=== PATIENT | female | born 1995 | race Caucasian/White ===

== ENCOUNTER → 2024-12-31 10:42 | Outpatient (CLI) | payer OTHER, SELFPAY ==
--- NOTE | 2024-12-31 10:47 | DI.MRI.S_ITS ---
PROCEDURE: MR HEAD/BRAIN WO CON INDICATIONS: PSYCHOGENIC NONEPILEPTIC SEIZURE TECHNIQUE: Noncontrast axial T1 spin echo, axial T2 fast spin echo, sagittal and axial FLAIR, coronal T2 fast spin echo, axial gradient echo, axial diffusion and ADC through the brain. The patient developed seizures following intravenous contrast administration. Postcontrast imaging consequently could not be obtained. COMPARISON: None. FINDINGS: Image quality: Excellent. CSF Spaces: Basal cisterns are patent. No extra-axial fluid collections. Ventricles are normal in size and shape. Brain: No intracranial masses or hemorrhage. Arias/white matter interface is normal. Brainstem appears normal. Diffusion-weighted images demonstrate no acute infarct. No chronic ischemic insults. Normal intravascular flow voids are present. Skull and face: Calvarium has normal marrow signal. Orbits appear normal. Sinuses: Sinuses and mastoids are clear. IMPRESSION: Negative evaluation. Dictated by: Sue Fuentes M.D. on 12/31/2024 at 11:56 Approved by: Sue Fuentes M.D. on 12/31/2024 at 11:57
== END ==
LOC: MRI 10:46
PROVIDERS: PCP Family Medicine; Referring Provider Family Medicine; Visit Provider Family Medicine
DX: F44.5 Conversion disorder with seizures or convulsions (principal); R51.9 Headache, unspecified
CPT/HCPCS: 70551

== ENCOUNTER 2024-12-31 11:47 | Emergency (ER) | payer OTHER, SELFPAY ==
[2024-12-31] VITALS (95 sets, daily range): BP systolic 91–118; BP diastolic 51–76; PULSE 64–116; RESP 6–28; TEMP 36.8; O2SAT 95–100; BMI 49.1
[2024-12-31] MEDS: LORazepam 2 MG/ML INJ 0.5 MG IV ×2 (11:47→13:58)
[2024-12-31] MEDS: SODIUM CHLORIDE 0.9% 1,000 ML 1000 ML IV (11:49)
--- NOTE | 2024-12-31 11:49 | ED.SEIZURE ---
HPI - Seizure General Chief Complaint: Seizure Stated Complaint: Seizure in MRI Time Seen by Provider: 12/31/24 11:48 Source: patient, RN notes reviewed and old records reviewed Mode of arrival: other (from MRI) Limitations: no limitations History of Present Illness HPI Narrative: 29-year-old female history of seizure disorder on lorazepam PRN, duloxetine, Lamictal and Topamax read. Per mom patient's Lamictal was recently close to 75 mg. Mom states she does have a history of seizures and/or pseudoseizures does follow with Neurology in [place]. Patient was getting an outpatient MRI when had seizure-like activity. Mom states last episode was about a month ago. Was seen in the emergency department and [facility]. Initially mom stated no allergies to medications but patient awoke and told us allergic to gabapentin, Keppra, Tegretol, morphine and Augmentin. Patient did have what appears to be tonic-clonic seizure-like activity no incontinence did awaken briefly and speak with myself shortly afterwards. Has had several brief episodes here in the department. Reports of fevers, no recent infections did have an increase in Lamictal to 75 mg today but was taking before. No other recent medication changes reported. Mom states she attempted to set up with Neurology at [facility] but was unsuccessful. Mom states no tobacco, no regular alcohol, occasionally uses in nicotine but no recreational drugs. Majority history is obtained from patient's mother who was with her for her outpatient MRI. Related Data Previous Rx's Medication Instructions Recorded ondansetron 4 mg disintegrating 4 mg PO Q6H PRN nausea and 12/31/24 tablet vomiting #5 tabs Allergies Allergy/AdvReac Type Severity Reaction Status Date / Time amoxicillin [From Augmentin] Allergy Rash Verified 12/31/24 11:57 carbamazepine [From Tegretol] Allergy Swelling Verified 12/31/24 11:57 of Lip/Tongue/Throat clavulanic acid Allergy Rash Verified 12/31/24 11:57 [From Augmentin] gabapentin Allergy Swelling Verified 12/31/24 11:57 of Lip/Tongue/Throat levetiracetam [From Keppra] Allergy Hives Verified 12/31/24 11:57 morphine Allergy Hallucinati Verified 12/31/24 11:57 ng Review of Systems Review of Systems ROS Unobtainable: All systems reviewed & are unremarkable except as noted in HPI and below Patient History Social History Smoking Status: Current every day smoker Exam Narrative Exam Narrative: GENERAL: Female in mild distress, alert and oriented times 3. HEENT: Head normocephalic, atraumatic, EOMI, pupils reactive, face symmetric, moist mucous membranes NECK: Supple, full range of motion CARDIOVASCULAR: Regular rate and rhythm without murmurs, rubs or gallops. RESPIRATORY: Breath sounds equal bilaterally, no wheezes rales or rhonchi. ABDOMEN: Soft, nontender. Normoactive bowel sounds all 4 quadrants. No guarding or rebound, rigidity, no mass : No CVA tenderness EXTREMITIES: Normal range of motion, no clubbing or edema. Neurovascularly intact NEUROLOGICAL: Cranial nerves II through XII grossly intact. Moving all extremities SKIN: Warm, dry, no petechiae, no rashes or lesions. Initial Vital Signs Initial Vital Signs: Vital Signs Pulse Rate 100 H 12/31/24 11:54 Respiratory Rate 17 12/31/24 11:54 Pulse Oximetry 98 12/31/24 11:54 Course Orders Ordered: ED Orders 12/31/24 11:50 CBC Auto Diff [Complete Blood Count AUTO DIFF] Stat CMP [Comprehensive Metabolic Panel] Stat ETOH [Ethanol (ETOH)] Stat Lamotrigine Lamictal Stat MAG [Magnesium] Stat Test Serum,Qual Stat TSH [Thyroid Stimulating Hormone] Stat Topiramate Stat EKG-12 Lead Stat 12/31/24 12:55 Urinalysis and Microscopic Stat Urine Drug Screen, Rapid Stat Discontinued Medications Acetaminophen (Acetaminophen 325 Mg Tablet) 975 mg PO NOW ONE Stop: 12/31/24 13:37 Last Admin: 12/31/24 13:52 Dose: 975 mg Documented By: RB Sodium Chloride (Normal Saline 0.9%) 1,000 mls @ 1,000 mls/hr IV BOLUS ONE Stop: 12/31/24 12:47 Last Infusion: 12/31/24 12:53 Dose: Infused Documented By: Admin: 12/31/24 11:49 Dose: 1,000 mls/hr Documented By: RB Levetiracetam 1,000 mg/ Sodium (Chloride) 110 mls @ 440 mls/hr IV NOW ONE Stop: 12/31/24 11:49 Last Admin: 12/31/24 12:07 Dose: Not Given Documented By: JAYRO Fosphenytoin Sodium 2,000 mg/ (Sodium Chloride) 140 mls @ 280 mls/hr IV NOW ONE Stop: 12/31/24 12:01 Last Infusion: 12/31/24 12:45 Dose: Infused Documented By: Admin: 12/31/24 12:13 Dose: 280 mls/hr Documented By: XOCHITL Lorazepam (Lorazepam 2 Mg/Ml Inj) 0.5 mg IV NOW ONE Stop: 12/31/24 11:48 Last Admin: 12/31/24 11:47 Dose: 0.5 mg Documented By: XOCHITL Lorazepam (Lorazepam 2 Mg/Ml Inj) 1 mg IV NOW ONE Stop: 12/31/24 12:03 Last Admin: 12/31/24 12:02 Dose: 1 mg Documented By: XOCHITL Lorazepam (Lorazepam 2 Mg/Ml Inj) 0.5 mg IV NOW ONE Stop: 12/31/24 14:00 Last Admin: 12/31/24 13:58 Dose: 0.5 mg Documented By: XOCHITL Ondansetron HCl (Ondansetron 4 Mg/2 Ml Inj) 4 mg IV NOW ONE Stop: 12/31/24 16:32 Last Admin: 12/31/24 16:44 Dose: 4 mg Documented By: CINTHYA Vital Signs Vital signs: Vital Signs - 8 hr 12/31/24 11:54 12/31/24 11:55 12/31/24 11:55 Temperature 98.2 F Pulse Rate 100 H 101 H 100 H Respiratory Rate 17 22 19 Blood Pressure 118/68 Pulse Oximetry 98 98 98 Oxygen Delivery Method Room Air 12/31/24 12:00 12/31/24 12:00 12/31/24 12:04 Temperature Pulse Rate 116 H 100 H Respiratory Rate 20 Blood Pressure 118/68 Pulse Oximetry 99 Oxygen Delivery Method 12/31/24 12:04 12/31/24 12:05 12/31/24 12:10 Temperature Pulse Rate 103 H 101 H 96 H Respiratory Rate 27 H 22 Blood Pressure Pulse Oximetry 98 98 98 Oxygen Delivery Method 12/31/24 12:15 12/31/24 12:15 12/31/24 12:20 Temperature Pulse Rate 92 H 87 Respiratory Rate 22 15 Blood Pressure 108/64 Pulse Oximetry 97 98 Oxygen Delivery Method 12/31/24 12:25 12/31/24 12:30 12/31/24 12:35 Temperature Pulse Rate 87 97 H 93 H Respiratory Rate 26 H 22 Blood Pressure Pulse Oximetry 97 95 97 Oxygen Delivery Method 12/31/24 12:40 12/31/24 12:40 12/31/24 12:45 Temperature Pulse Rate 87 Respiratory Rate 18 Blood Pressure 104/56 L 97/56 L Pulse Oximetry 96 Oxygen Delivery Method 12/31/24 12:45 12/31/24 12:50 12/31/24 12:55 Temperature Pulse Rate 89 89 93 H Respiratory Rate 19 16 25 H Blood Pressure Pulse Oximetry 96 97 97 Oxygen Delivery Method 12/31/24 13:00 12/31/24 13:00 12/31/24 13:05 Temperature Pulse Rate 93 H 89 Respiratory Rate 16 14 Blood Pressure 94/54 L Pulse Oximetry 97 99 Oxygen Delivery Method 12/31/24 13:10 12/31/24 13:16 12/31/24 13:16 Temperature Pulse Rate 84 87 Respiratory Rate 15 27 H Blood Pressure 113/66 Pulse Oximetry 99 99 Oxygen Delivery Method 12/31/24 13:20 12/31/24 13:25 12/31/24 13:30 Temperature Pulse Rate 87 76 Respiratory Rate 25 H 16 Blood Pressure 108/57 L Pulse Oximetry 98 99 Oxygen Delivery Method 12/31/24 13:30 12/31/24 13:35 12/31/24 13:40 Temperature Pulse Rate 74 71 79 Respiratory Rate 21 21 Blood Pressure Pulse Oximetry 97 98 99 Oxygen Delivery Method 12/31/24 13:45 12/31/24 13:45 12/31/24 13:50 Temperature Pulse Rate 73 72 Respiratory Rate Blood Pressure 104/56 L Pulse Oximetry 99 99 Oxygen Delivery Method 12/31/24 13:55 12/31/24 13:59 12/31/24 13:59 Temperature Pulse Rate 79 94 H Respiratory Rate Blood Pressure 114/59 L Pulse Oximetry 98 100 Oxygen Delivery Method 12/31/24 14:00 12/31/24 14:00 12/31/24 14:04 Temperature Pulse Rate 81 76 Respiratory Rate Blood Pressure 108/57 L Pulse Oximetry 99 100 Oxygen Delivery Method 12/31/24 14:04 12/31/24 14:05 12/31/24 14:08 Temperature Pulse Rate 81 75 Respiratory Rate 13 Blood Pressure 91/51 L Pulse Oximetry 98 99 Oxygen Delivery Method 12/31/24 14:09 12/31/24 14:20 12/31/24 14:20 Temperature Pulse Rate 72 Respiratory Rate 18 Blood Pressure 91/51 L 109/63 Pulse Oximetry 99 Oxygen Delivery Method 12/31/24 14:24 12/31/24 14:24 12/31/24 14:25 Temperature Pulse Rate 76 71 Respiratory Rate 17 12 Blood Pressure 114/65 Pulse Oximetry 99 99 Oxygen Delivery Method 12/31/24 14:28 12/31/24 14:28 12/31/24 14:30 Temperature Pulse Rate 70 70 Respiratory Rate 17 18 Blood Pressure 106/62 Pulse Oximetry 98 98 Oxygen Delivery Method 12/31/24 14:32 12/31/24 14:32 12/31/24 14:35 Temperature Pulse Rate 71 72 Respiratory Rate 18 18 Blood Pressure 102/61 Pulse Oximetry 98 98 Oxygen Delivery Method 12/31/24 14:36 12/31/24 14:36 12/31/24 14:40 Temperature Pulse Rate 71 Respiratory Rate 17 Blood Pressure 100/58 L 101/56 L Pulse Oximetry 97 Oxygen Delivery Method 12/31/24 14:40 12/31/24 14:44 12/31/24 14:44 Temperature Pulse Rate 69 71 Respiratory Rate 18 17 Blood Pressure 103/58 L Pulse Oximetry 99 98 Oxygen Delivery Method 12/31/24 14:45 12/31/24 14:48 12/31/24 14:48 Temperature Pulse Rate 69 68 Respiratory Rate 16 9 L Blood Pressure 104/60 Pulse Oximetry 99 98 Oxygen Delivery Method 12/31/24 14:50 12/31/24 14:52 12/31/24 14:52 Temperature Pulse Rate 73 67 Respiratory Rate 20 9 L Blood Pressure 104/63 Pulse Oximetry 99 99 Oxygen Delivery Method 12/31/24 14:55 12/31/24 14:56 12/31/24 14:56 Temperature Pulse Rate 70 69 Respiratory Rate 13 18 Blood Pressure 101/61 Pulse Oximetry 99 99 Oxygen Delivery Method 12/31/24 15:00 12/31/24 15:00 12/31/24 15:04 Temperature Pulse Rate 69 68 Respiratory Rate 13 15 Blood Pressure 109/65 Pulse Oximetry 99 97 Oxygen Delivery Method 12/31/24 15:04 12/31/24 15:05 12/31/24 15:08 Temperature Pulse Rate 71 68 Respiratory Rate 17 15 Blood Pressure 110/68 Pulse Oximetry 98 97 Oxygen Delivery Method 12/31/24 15:08 12/31/24 15:10 12/31/24 15:12 Temperature Pulse Rate 69 Respiratory Rate 19 Blood Pressure 109/64 96/58 L Pulse Oximetry 97 Oxygen Delivery Method 12/31/24 15:12 12/31/24 15:15 12/31/24 15:16 Temperature Pulse Rate 69 68 Respiratory Rate 14 18 Blood Pressure 96/56 L Pulse Oximetry 97 97 Oxygen Delivery Method 12/31/24 15:16 12/31/24 15:20 12/31/24 15:20 Temperature Pulse Rate 68 68 Respiratory Rate 15 12 Blood Pressure 99/58 L Pulse Oximetry 96 96 Oxygen Delivery Method 12/31/24 15:24 12/31/24 15:24 12/31/24 15:25 Temperature Pulse Rate 66 67 Respiratory Rate 17 18 Blood Pressure 96/59 L Pulse Oximetry 97 97 Oxygen Delivery Method 12/31/24 15:28 12/31/24 15:28 12/31/24 15:30 Temperature Pulse Rate 67 65 Respiratory Rate 6 L 18 Blood Pressure 95/54 L Pulse Oximetry 96 98 Oxygen Delivery Method 12/31/24 15:32 12/31/24 15:32 12/31/24 15:35 Temperature Pulse Rate 65 64 Respiratory Rate 9 L 7 L Blood Pressure 96/53 L Pulse Oximetry 97 97 Oxygen Delivery Method 12/31/24 15:36 12/31/24 15:36 12/31/24 15:40 Temperature Pulse Rate 65 Respiratory Rate 12 Blood Pressure 97/54 L 92/53 L Pulse Oximetry 97 Oxygen Delivery Method 12/31/24 15:40 12/31/24 15:44 12/31/24 15:44 Temperature Pulse Rate 65 66 Respiratory Rate 11 L Blood Pressure 94/53 L Pulse Oximetry 97 97 Oxygen Delivery Method 12/31/24 15:45 12/31/24 15:48 12/31/24 15:48 Temperature Pulse Rate 68 67 Respiratory Rate 15 Blood Pressure 94/54 L Pulse Oximetry 97 96 Oxygen Delivery Method 12/31/24 15:50 12/31/24 15:52 12/31/24 15:52 Temperature Pulse Rate 67 64 Respiratory Rate 15 17 Blood Pressure 95/53 L Pulse Oximetry 96 97 Oxygen Delivery Method 12/31/24 15:55 02/06/25 15:56 12/31/24 15:56 Temperature Pulse Rate 65 65 Respiratory Rate 14 12 Blood Pressure 94/53 L Pulse Oximetry 97 97 Oxygen Delivery Method 12/31/24 16:00 12/31/24 16:00 12/31/24 16:04 Temperature Pulse Rate 66 Respiratory Rate Blood Pressure 93/53 L 94/54 L Pulse Oximetry 97 Oxygen Delivery Method 12/31/24 16:04 12/31/24 16:05 12/31/24 16:08 Temperature Pulse Rate 66 67 Respiratory Rate 13 13 Blood Pressure 94/54 L Pulse Oximetry 97 97 Oxygen Delivery Method 12/31/24 16:08 12/31/24 16:10 12/31/24 16:12 Temperature Pulse Rate 67 67 73 Respiratory Rate 12 11 L 12 Blood Pressure Pulse Oximetry 97 97 96 Oxygen Delivery Method 12/31/24 16:12 12/31/24 16:15 12/31/24 16:16 Temperature Pulse Rate 69 Respiratory Rate 17 Blood Pressure 98/57 L 98/57 L Pulse Oximetry 99 Oxygen Delivery Method 12/31/24 16:16 12/31/24 16:20 12/31/24 16:20 Temperature Pulse Rate 75 70 Respiratory Rate 19 Blood Pressure 102/56 L Pulse Oximetry 99 100 Oxygen Delivery Method 12/31/24 16:24 12/31/24 16:24 12/31/24 16:25 Temperature Pulse Rate 78 77 Respiratory Rate 22 19 Blood Pressure 110/57 L Pulse Oximetry 99 100 Oxygen Delivery Method 12/31/24 16:28 12/31/24 16:28 12/31/24 16:30 Temperature Pulse Rate 73 72 Respiratory Rate 19 16 Blood Pressure 114/66 Pulse Oximetry 99 99 Oxygen Delivery Method 12/31/24 16:32 12/31/24 16:32 12/31/24 16:35 Temperature Pulse Rate 81 83 Respiratory Rate 16 28 H Blood Pressure 106/65 Pulse Oximetry 99 98 Oxygen Delivery Method 12/31/24 16:36 12/31/24 16:36 12/31/24 16:40 Temperature Pulse Rate 72 Respiratory Rate 18 Blood Pressure 118/71 116/71 Pulse Oximetry 99 Oxygen Delivery Method 12/31/24 16:40 12/31/24 16:44 12/31/24 16:44 Temperature Pulse Rate 75 71 Respiratory Rate 16 17 Blood Pressure 116/72 Pulse Oximetry 98 99 Oxygen Delivery Method 12/31/24 16:45 12/31/24 16:48 12/31/24 16:48 Temperature Pulse Rate 69 69 Respiratory Rate 15 18 Blood Pressure 116/72 Pulse Oximetry 99 97 Oxygen Delivery Method 12/31/24 16:50 12/31/24 16:52 12/31/24 16:52 Temperature Pulse Rate 71 76 Respiratory Rate 13 24 Blood Pressure 107/76 Pulse Oximetry 98 99 Oxygen Delivery Method MDM - Seizure Lab Data 12/31/24 11:50 12/31/24 11:50 Labs: Lab Results 12/31/24 12/31/24 12/31/24 Range/Units 11:50 12:55 12:55 WBC 14.2 H (4.5-11.0) X10^3/uL RBC 4.73 (4.0-5.2) X10^6/uL Hgb 14.5 (12.0-16.0) g/dL Hct 43.1 (36-46) % MCV 91.2 (80-100) fL MCH 30.7 (26-34) PG MCHC 33.6 (30-36) % RDW 12.2 (11.6-14.8) % Plt Count 377 (150-400) X10^3/uL Neut % (Auto) 51.9 (50-75) % Lymph % (Auto) 40.5 H (25-40) % [place] % (Auto) 5.8 (3-14) % Eos % (Auto) 1.5 L (2-4) % Baso % (Auto) 0.3 (0-2) % Neut # (Auto) 7400 H (4774-0418) /uL Lymph # (Auto) 5800 H (3209-3308) /uL [place] # (Auto) 800 (0-900) /uL Eos # (Auto) 200 (0-450) /uL Baso # (Auto) 0 (0-100) /uL Sodium 139 (137-145) mmol/L Potassium 3.9 (3.4-5.1) mmol/L Chloride 109 H (98-107) mmol/L Carbon Dioxide 13 L (22-32) mmol/L BUN 9 (7-17) mg/dL Creatinine 0.75 (0.52-1.04) mg/dL Estimated GFR > 60 (>60) mL/min BUN/Creatinine Ratio 12.0 (6-22) Glucose 90 (70-100) mg/dL Calcium 9.7 (8.4-10.2) mg/dL Magnesium 2.2 (1.6-2.3) mg/dL Total Bilirubin 0.5 (0.2-1.3) mg/dL AST 68 H (14-36) IU/L ALT 101 H (<35) IU/L Alkaline Phosphatase 64 (38-126) U/L Total Protein 7.4 (6.3-8.2) g/dL Albumin 4.7 (3.5-5.0) g/dL Globulin 2.7 (1.7-4.1) g/dL Albumin/Globulin Ratio 1.7 (1.0-2.8) TSH 1.53 (0.47-4.68) uIU/mL Serum , Qual Negative (Negative) Urine Color Yellow Urine Appearance Clear Urine pH 6.5 Normal (4.5-8.0) Ur Specific [place] <=1.005 (1.000-1.035) Urine Protein Negative (Negative) Urine Glucose (UA) Negative (Negative) g/dL Urine Ketones Negative (NEGATIVE) Urine Occult Blood 1+ H (Negative) Urine Nitrate Negative (Negative) Urine Bilirubin Negative (NEGATIVE) Urine Urobilinogen 0.2 (0.2) E.U./dL Ur Leukocyte Esterase Negative (NEGATIVE) Urine RBC 0-1/hpf (0-5/HPF) Urine WBC 0-1/hpf (0-5/HPF) Ur Squamous Epith Cells 1-5 /hpf (0-5/HPF) Urine Bacteria Moderate (10-30) H (None) Ur Culture Indicated? Cult not indicated Vol Urine Centrifuged 10ml (spun) U Opiates 300ng/mL cut Negative (Negative) Ur Oxycodone Screen Negative (Negative) Urine Methadone Screen Negative (Negative) Ur Barbiturates Screen Negative (Negative) U Tricyclic Antidepress Negative (Negative) Ur Phencyclidine Scrn Negative (Negative) Ur Amphetamines Screen Negative (Negative) U Methamphetamines Scrn Negative (Negative) Ur MDMA Scrn (Ecstasy) Negative (Negative) U Benzodiazepines Scrn Negative (Negative) Urine Cocaine Screen Negative (Negative) U Marijuana (THC) Screen Negative (Negative) Urine Specific [place] Normal (Normal) Ethyl Alcohol < 10 ( - 10) mg/dL Ur Creatinine Normal (Normal) Imaging Data MR brain: Radiologist's Impression: [address] [address] Magnetic Resonance Report Signed Patient: Checo Gill MR#: [id number] : 1995 Acct:[id number] Age/Sex: 29 / F Date of Service: 12/31/24 Loc: MRI Accession Number: [id number] Procedure: MR head/brain wo con Ordering Provider: Nhi Winter MD PROCEDURE: MR HEAD/BRAIN WO CON INDICATIONS: PSYCHOGENIC NONEPILEPTIC SEIZURE TECHNIQUE: Noncontrast axial T1 spin echo, axial T2 fast spin echo, sagittal and axial FLAIR, coronal T2 fast spin echo, axial gradient echo, axial diffusion and ADC through the brain. The patient developed seizures following intravenous contrast administration. Postcontrast imaging consequently could not be obtained. COMPARISON: None. FINDINGS: Image quality: Excellent. CSF Spaces: Basal cisterns are patent. No extra-axial fluid collections. Ventricles are normal in size and shape. Brain: No intracranial masses or hemorrhage. Arias/white matter interface is normal. Brainstem appears normal. Diffusion-weighted images demonstrate no acute infarct. No chronic ischemic insults. Normal intravascular flow voids are present. Skull and face: Calvarium has normal marrow signal. Orbits appear normal. Sinuses: Sinuses and mastoids are clear. IMPRESSION: Negative evaluation. Dictated by: Sue Fuentes M.D. on 12/31/2024 at 11:56 Approved by: Sue Fuentes M.D. on 12/31/2024 at 11:57 ECG Data Attestation: I personally reviewed and interpreted this ECG as follows: Prior ECG tracings: not available for review Interpretation: Sinus rhythm rate 87 AL 166 QRS of 92 QTC of 442, no acute ST elevation depression. No priors for comparison. MDM Narrative Medical decision making narrative: 29-year-old female reported history of seizure activity and MR, patient does have what appears to possibly be tonic-clonic activity, was transferred over to the emergency department. Patient obtain access placed on monitor, no hypoxia during episodes. Patient had seizure precautions placed. He was able to talk in between episodes. Patient received 0.5 mg Ativan IV had additional episode received additional 1 mg of Ativan. Was initially going to give Keppra mom states no allergies but patient states she does have an allergy which is rash so was loaded with fosphenytoin. 1213 patient had multiple episodes of seizure-like activity no incontinence patient is immediately conversant afterwards and able to give good history notes that she used to be on Lamictal for a long did well with her seizures was stopped by her neurologist and put on Topamax right. She states her neurologist we will not stop her Topamax rate but she had her Lamictal restarted 3 weeks ago down at [facility]. She states she had a negative EEG most recently. She is seen her neurologist who she states has told her they can not do anything else for her and tried to establish with Neurology at [facility] but was told that they would not see her. Labs show white count of 14 hemoglobin of 14.5 platelets of 377. Labs show sodium 139 potassium 3.9 chloride of 109 CO2 of 13 BUN 9 creatinine of 0.75 glucose of 90 AST 68 ALT is 101, TSH is 1.53 serum is negative. ETOH is negative. UDS is negative. Lamictal level was ordered for send out as well as Topamax level. Urine shows 1+ blood, moderate bacteria no nitrates no leuks. 0-1 white cells 0-1 red cells 1-5 squamous. Patient did have MRI brain today appears to have been completed and was negative MR brain without indication was for psychogenic nonepileptic seizure. Bedside ultrasound patient had what appears to be a little bit of himself and actually appears healed patient drained it herself but states she has had issues in the past and was concerned that there might be some tunneling. Bedside ultrasound shows no fluid collection in the wound appears to be healing it is clean dry and intact without any erythema or drainage. Spoke with neurology, Dr. Jayme Yañez, He is on-call for Neurology for Dr. Wilkinson who patient normally sees. Is little bit familiar with the patient states she had negative EEG which was nonepileptic in 2020. They did have a call from [place] 12/09/2024 at that time asked to set a Topamax level suspected likely nonepileptic seizures had reported 11 seizures at the hospital. That time she was off the Lamictal but he states it may has been restarted. After discussion suspect was likely nonepileptic but if there is concern for not or patient continues to have potential activity could be transferred to facility for EEG testing. There is a paucity of beds currently they would be happy to see her [place] but may not have capacity. Did send a Topamax level in addition to Lamictal. He would have patient call to set up follow up if they ultimately discharged home. Discussed with the patient recommendations from Neurology, she was being tapered up on her Lamictal by Dr. Winter her primary care physician. Discussed if they feel safe neurology felt she could discharge home but if there is concern for persistent true seizures or that there is a safety issue could potentially transfer for EEG for further evaluation but this may take some time secondary to lack of beds in the area. Patient and mother are both at bedside for this discussion. 1632 Patient is feeling improved did ask for doses Zofran and a prepack. We had discussed recommendations from Neurology she would like to return home after period of observation without any additional issues. She does ask if you could send script for some Zofran to [facility] pharmacy. Discharge Plan Departure Patient Disposition: Home Clinical Impression: History of psychogenic nonepileptic seizure Activity Restrictions/Additional Instructions: Follow up with your physician Dr. Winter as well as Neurology. I did speak with Dr. Yañez today, we sent a Lamictal level as well as a Topamax level. These are send out labs and will take some time to return. These labs do not automatically go to your neurologist or primary care and we will need to be followed up. Please call to set up a follow up appointment. Your MRI of your brain today was read as negative by Radiology. You can take Zofran 1 tablet every 6 hours as needed. A prescription was sent [facility] Please return for new or concerning changes, persistent seizure activity, changes to mental status, if not returning to normal after seizure-like activity, vomiting, difficulty with breathing, new chest pain, fevers or other new or concerning changes Prescriptions: New ondansetron 4 mg tablet,disintegrating 4 mg PO Q6H PRN (Reason: nausea and vomiting) Qty: 5 0RF Referrals: Nhi Winter MD [Primary Care Provider] - Stand Alone Forms: Patient Portal/API/Survey
--- NOTE | 2024-12-31 11:50 | EKG_ITS ---
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
[2024-12-31 11:58] LABS: Add Manual Diff / Slide Review NO; Basophils Absolute Auto 0 /uL (0-100); Basophils Percent Auto 0.3 % (0-2); Eosinophils Absolute Auto 200 /uL (0-450); Eosinophils Percent Auto 1.5 % (2-4); Hematocrit 43.1 % (36-46); Hemoglobin 14.5 g/dL (12.0-16.0); Lymphocytes Absolute Auto 5800 /uL (1100-4500); Lymphocytes Percent Auto 40.5 % (25-40); Mean Corpuscular HGB Conc 33.6 % (30-36); Mean Corpuscular Hemoglobin 30.7 PG (26-34); Mean Corpuscular Volume 91.2 fL (80-100); Monocytes Absolute Auto 800 /uL (0-900); Monocytes Percent Auto 5.8 % (3-14); Neutrophils Absolute Auto 7400 /uL (1500-7000); Neutrophils Percent Auto 51.9 % (50-75); Platelet Count 377 X10^3/uL (150-400); Red Blood Cell Count 4.73 X10^6/uL (4.0-5.2); Red Cell Distribution Width 12.2 % (11.6-14.8); White Blood Cell Count 14.2 X10^3/uL (4.5-11.0)
[2024-12-31] MEDS: LORazepam 2 MG/ML INJ 1 MG IV (12:02)
[2024-12-31 12:12] LABS: Magnesium 2.2 mg/dL (1.6-2.3)
[2024-12-31 12:13] LABS: Alanine Aminotransferase 101 IU/L (<35); Albumin 4.7 g/dL (3.5-5.0); Albumin Globulin Ratio 1.7 (1.0-2.8); Alkaline Phosphatase 64 U/L (38-126); Aspartate Aminotransferase 68 IU/L (14-36); Bilirubin Total 0.5 mg/dL (0.2-1.3); Blood Urea Nitrogen 9 mg/dL (7-17); Calcium 9.7 mg/dL (8.4-10.2); Carbon Dioxide 13 mmol/L (22-32); Chloride 109 mmol/L (98-107); Estimated Glomerular Filt Rate > 60 mL/min (>60); Ethanol (ETOH) < 10 mg/dL; Globulin 2.7 g/dL (1.7-4.1); Glucose 90 mg/dL (70-100); HEMOLYSIS 33 (0-50); Potassium 3.9 mmol/L (3.4-5.1); Sodium 139 mmol/L (137-145); Total Protein 7.4 g/dL (6.3-8.2)
[2024-12-31] MEDS: SODIUM CHLORIDE 0.9% IV (12:13)
[2024-12-31] MEDS: FOSPHENYTOIN IV (12:13)
[2024-12-31 12:15] LABS: Pregnancy Test Serum,Qual Negative (Negative)
--- NOTE | 2024-12-31 12:40 | PC.NURSE ---
Rapid response called at 1143 by [employer]. This RN along with fellow staff from other departments responded to this patient actively seizing on x-ray stretcher. Patient was taken to the Emergency department room 1. Immediate vitals at 1145 were: Heart rate 117; blood pressure 150/88; pulse oxygenation 98, respirations 22 and forehead temperature was 98.2. Patient is sinus tach on 5 lead. 20G IV placed by DI nurse in left wrist at 1145. 1000ml bolus normal saline began at 1149. 22g IV Right wrist/forearm with labs drawn from IV at 1150 by coordinator. 0.5mg Ativan given at 1147 by DI nurse. Patient stopped seizing within 1 minute of administration of this medication. Patient seizure pads arrive at 1201. Patient begins seizing at 12:02. Provider orders 1mg of Ativan. This RN administers 1mg Ativan at 1203. Rapid response team included this RN, supercharger mechanic, coordinator, motorcycle technician, respiratory therapist, and ED physician.
[2024-12-31 12:48] LABS: Thyroid Stimulating Hormone 1.53 uIU/mL (0.47-4.68)
[2024-12-31 13:06] LABS: UR Morphine/Opiate cutoff 300 Negative (Negative); Ur Creatinine Normal (Normal); Ur Specific Gravity Normal (Normal); Urine Amphetamines Negative (Negative); Urine Barbiturates Negative (Negative); Urine Benzodiazepines Negative (Negative); Urine Cocaine Negative (Negative); Urine MDMA Negative (Negative); Urine Methadone Negative (Negative); Urine Methamphetamines Negative (Negative); Urine Oxycodone Negative (Negative); Urine Phencyclidine Negative (Negative); Urine Tetrahydrocannabinol Negative (Negative); Urine Tricyclic Antidepressant Negative (Negative); Urine pH Normal (Normal)
[2024-12-31 13:11] LABS: Appearance Urine UA CLEAR; Bilirubin Urine UA NEGATIVE (NEGATIVE); Color Urine UA YELLOW; Glucose Urine UA NEGATIVE (Negative); Ketones Urine UA NEGATIVE (NEGATIVE); Leukocyte Esterase Urine UA NEGATIVE (NEGATIVE); Nitrite Urine UA NEGATIVE (Negative); Occult Blood Urine UA 1+ (Negative); Protein Urine UA NEGATIVE (Negative); Specific Gravity Urine UA <=1.005 (1.000-1.035); Urobilinogen Urine UA 0.2 E.U./dL (0.2)
[2024-12-31 13:12] LABS: pH Urine UA 6.5 (4.5-8.0)
--- NOTE | 2024-12-31 13:14 | RT ---
Responded to Rapid Response for pt Seizing. Pt on room air 97%, patent airway and no distress noted. Suction on and functional at bedside. MD at bedside, pt on etco2 with sao2 @98% on 2 lpm nc. Etco2-34
[2024-12-31 13:23] LABS: RBC Urine 0-1/HPF (0-5/HPF); Urine Volume 10mL (spun)
[2024-12-31 13:24] LABS: Bacteria Urine Moderate (10-30); Culture Indicated Urine Cult Not Indicated; Squamous Epithelial Cell Urine 1-5 /HPF (0-5/HPF); WBC Urine 0-1/HPF (0-5/HPF)
[2024-12-31] MEDS: ACETAMINOPHEN 325 MG TABLET 975 MG PO (13:52)
--- NOTE | 2024-12-31 14:00 | PC.NURSE ---
This RN was at patient bedside and patient eye movement began to become rapid in various directions. This RN administered 0.5mg Ativan 1359. Seizure started at 1358 and lasted 52 seconds. Fellow RN came at patient bedside and helped me roll patient to left side and suctioned patient. Dr. Oneill was called and walked in at 1400.
[2024-12-31] MEDS: ONDANSETRON 4 MG/2 ML INJ IV (16:44)
[2025-01-04 14:36] LABS: Lamotrigine Lamictal 2.5 ug/mL (2.0-20.0); Topiramate 6.4 ug/mL (2.0-25.0)
== END 2024-12-31 17:15 | disposition home or self-care (01) ==
PROVIDERS: Emergency Provider Emergency Medicine; PCP Family Medicine
DX: F44.5 Conversion disorder with seizures or convulsions (principal); R51.9 Headache, unspecified; Z86.69 Personal history of other diseases of the nervous system and sense organs
CPT/HCPCS: 36415; 70551; 80053; 80175; 80201; 80305; 80320; 81001; 83735; 84443; 84703; 85025; 93005; 96365; 96375; 96376; 99284; J2060; J2405; Q2009

== ENCOUNTER → 2025-04-29 11:45 | Outpatient (CLI) | payer OTHER, SELFPAY ==
--- NOTE | 2025-04-29 | DI.RAD.S_ITS ---
PROCEDURE: XR LUMBAR SPINE 2-3V INDICATIONS: CHRONIC BILATERAL BACK PAIN TECHNIQUE: 3 views of the lumbar spine were acquired. COMPARISON: None. FINDINGS: Bones: 5 [id number] vertebrae are present. There is levoconvex curvature with angulation of 25?. Posterior spinal rods with transpedicular screws bilaterally at the L1-L4 levels. The hardware appears in good position and intact. No other focal lesion seen. Posterior bone grafting was also performed. Soft tissues: Overlying bowel gas pattern is normal. No suspicious soft tissue calcifications. IMPRESSION: Postoperative changes and residual scoliosis, no acute focal osseous lesion seen. Dictated by: Ayush Sung M.D. on 04/29/2025 at 19:27 Approved by: Ayush Sung M.D. on 04/29/2025 at 19:28
--- NOTE | 2025-04-29 | DI.RAD.S_ITS ---
PROCEDURE: XR THORACIC SPINE 3V INDICATIONS: CHRONIC BACK PAIN TECHNIQUE: 3 views of the thoracic spine were acquired. COMPARISON: None. FINDINGS: Bones: There is dextroconvex curvature in the thoracic region with angulation of 27?. There are posterior spinal rods with transpedicular screws seen bilaterally at T12, on the right at the T11 level, on the right a T8, on the left a T7, on the right to T6 and on the left at T5. The hardware appears intact. Soft tissues: No paravertebral stripe thickening. IMPRESSION: Postoperative changes with residual dextroscoliosis as described, no focal osseous lesion seen. Dictated by: Ayush Sung M.D. on 04/29/2025 at 19:24 Approved by: Ayush Sung M.D. on 04/29/2025 at 19:26
--- NOTE | 2025-04-29 | DI.RAD.S_ITS ---
PROCEDURE: XR HIP W PEL IF DONE RT 2V INDICATIONS: CHRONIC BILATERAL BACK PAIN TECHNIQUE: 2 views of the hip were acquired. COMPARISON: None. FINDINGS: Bones: No fractures or dislocations. No suspicious bony lesions. The visualized pelvic ring appears intact. Soft tissues: No suspicious soft tissue calcifications or masses. IMPRESSION: No acute bony abnormality. Dictated by: Ayush Sung M.D. on 04/29/2025 at 19:28 Approved by: Ayush Sung M.D. on 04/29/2025 at 19:29
== END ==
PROVIDERS: PCP Family Medicine; Referring Provider Family Medicine; Visit Provider Family Medicine
DX: M41.9 Scoliosis, unspecified (principal); M54.9 Dorsalgia, unspecified; G89.29 Other chronic pain
CPT/HCPCS: 72072; 72100; 73502

== ENCOUNTER 2025-08-24 14:20 | Emergency (ER) | payer OTHER, SELFPAY ==
[2025-08-24] VITALS (8 sets, daily range): BP systolic 97–122; BP diastolic 53–72; PULSE 72–89; RESP 18; TEMP 37.1; O2SAT 95–98; BMI 36.2
--- NOTE | 2025-08-24 15:00 | ED_ITS ---
HPI - Neuro Symptoms/Deficit General Chief Complaint: Neuro Symptoms/Deficit Stated Complaint: rachelle, seizure on not returned to normal Time Seen by Provider: 08/24/25 14:59 Source: patient Mode of arrival: Ambulatory History of Present Illness HPI Narrative: 29-year-old female patient with a history of seizure disorder who had a extended generalized seizure 5 days ago and since then has been feeling weak all over with intermittent lightheadedness and slow thinking. She has had nausea with no vomiting and she has had salt craving. She also has reporting increased frequency of urination but no dysuria, fever or chills. No flank pain, URI symptoms or GI symptoms otherwise she says her appetite has been normal. She was sent over from primary care today because she has these persistent symptoms of dizziness and generalized weakness. On Anticoagulants: No Related Data Previous Rx's ?Medication ?Instructions ?Recorded ondansetron 4 mg disintegrating 4 mg PO Q6H PRN nausea and 12/31/24 tablet vomiting #5 tabs Allergies Allergy/AdvReac Type Severity Reaction Status Date / Time iodine Allergy Intermediate Seizure Verified 08/24/25 14:27 amoxicillin (From Augmentin) Allergy Rash Verified 12/31/24 11:57 carbamazepine (From Tegretol) Allergy Swelling Verified 12/31/24 11:57 of Lip/Tongue/Throat clavulanic acid (From Allergy Rash Verified 12/31/24 11:57 Augmentin) gabapentin Allergy Swelling Verified 12/31/24 11:57 of Lip/Tongue/Throat levetiracetam (From Keppra) Allergy Hives Verified 12/31/24 11:57 morphine Allergy Hallucinati Verified 12/31/24 11:57 ng Review of Systems Review of Systems ROS Unobtainable: All systems reviewed & are unremarkable except as noted in HPI and below Gastrointestinal Gastrointestinal: Reports as per HPI Neurologic Neurologic: Reports as per HPI Hematologic/Lymphatic On Anticoagulants: No Patient History Social History Smoking Status: Current every day smoker Smoking Status: Current every day smoker tobacco type: vaping and smokeless tobacco Exam Narrative Exam Narrative: General: Alert and conversant. No distress. Appears well nourished and well hydrated. Somewhat slow with answers Craniofacial: No evidence of trauma. Nontender and no swelling. Eyes: PERRLA EOMI conjunctiva clear HEENT: Oropharynx clear with no swelling, exudate or asymmetry of the pharynx. Nares clear. No sinus tenderness Neck: No tenderness or adenopathy. No meningismus. No JVD Lungs: Clear to auscultation with good air movement. No wheezing, rales or rhonchi. No respiratory distress Cardiac: Regular rate and rhythm with no appreciable murmur or gallop Abdomen: Soft, nontender with no distention or masses. Normal bowel sounds. No rebound or guarding Musculoskeletal: Exam of the extremities, axial spine and ribcage reveals no deformity, bony tenderness or swelling. Range of motion intact Neuro: Alert and oriented. Cranial nerves, motor, sensory and cerebellar all grossly intact. No focal deficit Skin: Warm and normal color. No rashes Psychological: Somewhat flattened affect. No evidence of delusion or psychosis. Normal mood. Initial Vital Signs Initial Vital Signs: Vital Signs Temperature 98.8 F 08/24/25 14: Pulse Rate 89 08/24/25 14: Respiratory Rate 18 08/24/25 14: Blood Pressure 116/69 08/24/25 14:26 Pulse Oximetry 95 08/24/25 14:26 Oxygen Delivery Method Room Air 08/24/25 14:26 Course Course Course Narrative: 16:25 Patient feels better after 1 L of fluid. Lab work is essentially unremarkable and reassuring. Patient has had generalized weakness and occasional lightheadedness since having a seizure 4 days ago. Orders Ordered: ED Orders 08/24/25 15:15 CBC Auto Diff [Complete Blood Count AUTO DIFF] Stat CMP [Comprehensive Metabolic Panel] Stat 08/24/25 15:20 Urinalysis and Microscopic Stat Discontinued Medications Sodium Chloride (Normal Saline 0.9%) 1,000 mls @ 1,000 mls/hr IV BOLUS ONE Stop: 08/24/25 16:12 Last Infusion: 08/24/25 16:36 Dose: Infused Documented By: Admin: 08/24/25 15:43 Dose: 1,000 mls/hr Documented By: ROBBIE Vital Signs Vital signs: Vital Signs - 8 hr 08/24/25 14:26 08/24/25 14:39 08/24/25 14:40 Temperature 98.8 F Pulse Rate 89 81 81 Respiratory Rate 18 Blood Pressure 116/69 Pulse Oximetry 95 98 97 Oxygen Delivery Method Room Air 08/24/25 14:40 08/24/25 15:00 08/24/25 15:00 Temperature Pulse Rate 76 Respiratory Rate Blood Pressure 122/72 104/60 Pulse Oximetry 98 Oxygen Delivery Method 08/24/25 15:21 08/24/25 15:21 08/24/25 15:30 Temperature Pulse Rate 80 Respiratory Rate Blood Pressure 103/58 L 104/60 Pulse Oximetry 97 Oxygen Delivery Method 08/24/25 15:30 08/24/25 16:00 08/24/25 16:00 Temperature Pulse Rate 72 73 Respiratory Rate Blood Pressure 105/62 Pulse Oximetry 95 97 Oxygen Delivery Method Room Air 08/24/25 16:30 08/24/25 16:30 Temperature Pulse Rate 72 Respiratory Rate Blood Pressure 97/53 L Pulse Oximetry 98 Oxygen Delivery Method MDM - Neuro Symptoms/Deficit Differential Diagnosis Differential diagnosis: Likely convulsions and other (Weakness and dehydration secondary to her seizure) Condition is:: Improved Medical Records Attestation: I reviewed the patient's medical records. Lab Data Attestation: I reviewed the patient's lab results. 08/24/25 15:15 08/24/25 15:15 Labs: Lab Results 08/24/25 08/24/25 08/24/25 Range/Units 15:12 15:15 15:20 WBC 7.9 (4.5-11.0) X10^3/uL RBC 4.85 (4.0-5.2) X10^6/uL Hgb 14.3 (12.0-16.0) g/dL Hct 42.0 (36-46) % MCV 86.6 (80-100) fL MCH 29.6 (26-34) PG MCHC 34.2 (30-36) % RDW 12.7 (11.6-14.8) % Plt Count 297 (150-400) X10^3/uL Neut % (Auto) 59.1 (50-75) % Lymph % (Auto) 32.3 (25-40) % [place] % (Auto) 7.4 (3-14) % Eos % (Auto) 0.7 L (2-4) % Baso % (Auto) 0.5 (0-2) % Neut # (Auto) 4700 (2017-6326) /uL Lymph # (Auto) 2600 (7274-0101) /uL [place] # (Auto) 600 (0-900) /uL Eos # (Auto) 100 (0-450) /uL Baso # (Auto) 0 (0-100) /uL Sodium 137 (137-145) mmol/L Potassium 4.3 (3.4-5.1) mmol/L Chloride 108 H (98-107) mmol/L Carbon Dioxide 19 L (22-32) mmol/L BUN 13 (7-17) mg/dL Creatinine 0.84 (0.52-1.04) mg/dL Estimated GFR > 60 (>60) mL/min BUN/Creatinine Ratio 15.5 (6-22) Glucose 72 (70-99) mg/dL POC Whole Bld Glucose 72 (70-99) mg/dL Calcium 9.3 (8.4-10.2) mg/dL Total Bilirubin 0.4 (0.2-1.3) mg/dL AST 28 (14-36) IU/L ALT 28 (<35) IU/L Alkaline Phosphatase 56 (38-126) U/L Total Protein 7.2 (6.3-8.2) g/dL Albumin 4.5 (3.5-5.0) g/dL Globulin 2.7 (1.7-4.1) g/dL Albumin/Globulin Ratio 1.7 (1.0-2.8) Urine Color Yellow Urine Appearance Clear Urine pH 7.0 (4.5-8.0) Ur Specific [place] 1.015 (1.000-1.035) Urine Protein Negative (Negative) Urine Glucose (UA) Negative (Negative) g/dL Urine Ketones Negative (NEGATIVE) Urine Occult Blood Negative (Negative) Urine Nitrate Negative (Negative) Urine Bilirubin Negative (NEGATIVE) Urine Urobilinogen 0.2 (0.2) E.U./dL Ur Leukocyte Esterase Negative (NEGATIVE) Urine RBC None seen (0-5/HPF) Urine WBC None seen (0-5/HPF) Ur Squamous Epith Cells 10-30 /hpf H D (0-5/HPF) Ur Transition Epith Cell 1-5/hpf (0-5/HPF) Amorphous Sediment 1+ Urine Bacteria Moderate (10-30) H (None) Ur Culture Indicated? Cult not indicated Vol Urine Centrifuged 10ml (spun) MDM Narrative Medical decision making narrative: Patient has been weak and slightly lightheaded with decreased energy since having a significant seizure 4 days ago but none since. Has improved with hydration. Lab work is reassuring for any other cause of her weakness. Plan is to continue her current medications including seizure medications and monitor symptoms and follow up closely with her provider. Return to the ER if worse. Discharge Plan Departure Patient Disposition: Home Clinical Impression: General weakness, Acute dehydration Instructions: Dehydration, DI for Fatigue Activity Restrictions/Additional Instructions: Hydration, rest and supportive care. Follow up with your doctor if not improving. Return to the ER if worse. Prescriptions: No Action ondansetron 4 mg tablet,disintegrating 4 mg PO Q6H PRN (Reason: nausea and vomiting) Qty: 5 0RF Referrals: Klarissa Wilkins MD [Primary Care Provider, Family Practice] Stand Alone Forms: Patient Portal/API
[2025-08-24 15:24] LABS: Add Manual Diff / Slide Review NO; Hematocrit 42.0 % (36-46); Hemoglobin 14.3 g/dL (12.0-16.0); Lymphocytes Absolute Auto 2600 /uL (1100-4500); Mean Corpuscular HGB Conc 34.2 % (30-36); Mean Corpuscular Hemoglobin 29.6 PG (26-34); Mean Corpuscular Volume 86.6 fL (80-100); Platelet Count 297 X10^3/uL (150-400)
[2025-08-24 15:39] LABS: Appearance Urine UA CLEAR; Bilirubin Urine UA NEGATIVE (NEGATIVE); Color Urine UA YELLOW; Glucose Urine UA NEGATIVE (Negative); Ketones Urine UA NEGATIVE (NEGATIVE); Leukocyte Esterase Urine UA NEGATIVE (NEGATIVE); Nitrite Urine UA NEGATIVE (Negative); Occult Blood Urine UA NEGATIVE (Negative); Protein Urine UA NEGATIVE (Negative); Specific Gravity Urine UA 1.015 (1.000-1.035); Urobilinogen Urine UA 0.2 E.U./dL (0.2)
[2025-08-24] MEDS: SODIUM CHLORIDE 0.9% 1,000 ML 1000 ML IV (15:43)
[2025-08-24 15:47] LABS: Alanine Aminotransferase 28 IU/L (<35); Albumin 4.5 g/dL (3.5-5.0); Albumin Globulin Ratio 1.7 (1.0-2.8); Alkaline Phosphatase 56 U/L (38-126); Blood Urea Nitrogen 13 mg/dL (7-17); Calcium 9.3 mg/dL (8.4-10.2); Carbon Dioxide 19 mmol/L (22-32); Chloride 108 mmol/L (98-107); Estimated Glomerular Filt Rate > 60 mL/min (>60); Globulin 2.7 g/dL (1.7-4.1); Glucose 72 mg/dL (70-99); Potassium 4.3 mmol/L (3.4-5.1); Sodium 137 mmol/L (137-145); Total Protein 7.2 g/dL (6.3-8.2)
[2025-08-24 15:56] LABS: HEMOLYSIS 52 (0-50)
[2025-08-24 15:56] LABS: pH Urine UA 7.0 (4.5-8.0)
[2025-08-24 16:03] LABS: Culture Indicated Urine Cult Not Indicated
== END 2025-08-24 16:38 | disposition home or self-care (01) ==
PROVIDERS: Emergency Provider Emergency Medicine; PCP Family Medicine
DX: R53.1 Weakness (principal); E86.0 Dehydration; R42 Dizziness and giddiness
CPT/HCPCS: 80053; 81001; 82962; 85025; 96360; 99283; 99284